=== PATIENT | female | born 1975 | race Caucasian/White ===

== ENCOUNTER 2017-09-30 00:27 | Emergency (ER) | payer BC, OTHER ==
[~2017-09-30] VITALS: Ht 162.6 cm; Wt 59.0 kg
--- OUTSIDE RECORDS SUMMARY | 2017-09-30 00:34 | XMS REPORT ---
Author Author CATHY DODD Organization [employer] Address Unknown Phone Unavailable Care Team Providers Care Clearance Center Manager Name Role Phone CATHY DODD CP Unavailable Allergies No Known Allergies Problems Problem Type Condition ICD-9 Code Onset Dates Condition Status Assessment Tuberculosis screening V74.1 Active Assessment Encounter for drug screening V72.85 Active Assessment Physical examination of employee V70.5 Active Medications No Known Medications Procedures Procedure Coding System Code Date TB INTRADERMAL TEST CPT-4 15370 Feb 27, 2015 Office Visit, New Pt., Level 2 CPT-4 86612 Feb 27, 2015 DRUG SCREEN NON TLC DEVICES CPT-4 02299 Feb 27, 2015 Vital Signs Date/Time: Feb 27, 2015 Blood Pressure Systolic 128 mmHg Cardiac Monitoring Heart Rate 84 bpm Temperature 97.8 F Blood Pressure Diastolic 72 mmHg Results No Known Results Summary Purpose [employer] Submission
[2017-09-30] MEDS ORDERED: NS IV 1000 ML 1,000 ML IV ONE (00:55)
--- NOTE | 2017-09-30 01:06 | ED GU-Female ---
General Chief Complaint: -Female Stated Complaint: HEAVY PERIOD Nursing Triage Note: pt presents to er with complaint of heavy period bleeding. states it started thursday and has progessively gotten worse. states shes been changing a pad every 30min-1hr Nursing Sepsis Screen: No Definite Risk Source: patient Exam Limitations: no limitations History of Present Illness Date Seen by Provider: Sep 30, 2017 Time Seen by Provider: 00:50 Initial Comments Here with report of any vaginal bleeding that has been going on for 2 days but much worse tonight. Reports that she is changing her pad every half hour. Denies any significant pain. She's never had bleeding like this before. She is not sexually active. Denies vaginal discharge or pain. Denies dysuria or diarrhea. Timing/Duration: getting worse Severity/Quality: moderate, other (bleeding) Location: vaginal Radiation: none Activities at Onset: none Sexual [place] History: not active Associated Symptoms: No abdominal pain, No dysuria, No fever/chills, No lower back pain, No nausea/vomiting, No urinary frequency Allergies and Home Medications Allergies Coded Allergies: No Known Drug Allergies (Unverified , 09/30/17) Home Medications No Active Prescriptions or Reported Meds Patient Home Medication List Home Medication List Reviewed: Yes Constitutional: see HPI, No chills, No fever EENTM: no symptoms reported Respiratory: no symptoms reported Cardiovascular: No chest pain, No palpitations, other (tachycardia) Gastrointestinal: No abdominal pain, No nausea, No vomiting Genitourinary: see HPI : No LMP: Sep 27, 2017 Musculoskeletal: no symptoms reported Skin: no symptoms reported Psychiatric/Neurological: No Symptoms Reported, Anxiety, Denies Headache All Other Systemes Reviewed Negative Unless Noted: Yes Past Sohdyms-Cgxvoo-Jzltyg Hx Patient Social History Alcohol Use: Denies Use Recreational Drug Use: No Smoking Status: Never a Smoker Recent Foreign Travel: No Contact w/Someone Who Travel: No Recent Infectious Disease Expo: No Recent Hopitalizations: No Seasonal Allergies Seasonal Allergies: Yes Surgeries History of Surgeries: No Respiratory History of Respiratory Disorde: No Cardiovascular History of Cardiac Disorders: No Neurological History of Neurological Disord: No Genitourinary History of Genitourinary Disor: No Gastrointestinal History of Gastrointestinal Di: No Musculoskeletal History of Musculoskeletal Dis: No Endocrine History of Endocrine Disorders: No HEENT History of HEENT Disorders: No Cancer History of Cancer: No Psychosocial History of Psychiatric Problem: No Integumentary History of Skin or Integumenta: No Blood Transfusions History of Blood Disorders: No Reviewed Nursing Assessment Reviewed/Agree w Nursing PMH: Yes Family Medical History Significant Family History: No Pertinent Family Hx Physical Exam Vital Signs Vital Signs - First Documented 09/30/17 00:36 Temp 98.0 Pulse 140 Resp 20 B/P (MAP) 130/107 (115) Pulse Ox 100 O2 Delivery Room Air Capillary Refill : Less Than 3 Seconds General Appearance: WD/WN, no apparent distress HEENT: PERRL/EOMI, pharynx normal Neck: full range of motion, supple Cardiovascular: no murmur, tachycardia Respiratory: lungs clear, normal breath sounds Gastrointestinal: non tender, soft Back: normal inspection, no CVA tenderness, no vertebral tenderness Extremities: non-tender, normal inspection Neurologic/Psychiatric: alert, oriented x 3 Skin: normal color, warm/dry Progress/Results/Core Measures Suspected Sepsis Recent Fever Within 48 Hours: No Infection Criteria Present: None New/Unexplained Altered Menta: No Sepsis Screen: No Definite Risk Sepsis Diagnosis: SIRS Temperature:98.0 Pulse: 140 Respiratory Rate: 20 Laboratory Tests 09/30/17 01:00: White Blood Count 9.4 Blood Pressure 130 /107 Mean: 115 Laboratory Tests 09/30/17 01:00: Creatinine 0.82, Platelet Count 353, Total Bilirubin 0.5 Results/Orders Lab Results Laboratory Tests Test 09/30/17 01:00 Range/Units White Blood Count 9.4 4.3-11.0 10^3/uL Red Blood Count 4.02 L 4.35-5.85 10^6/uL Hemoglobin 12.4 11.5-16.0 G/DL Hematocrit 35 35-52 % Mean Corpuscular Volume 88 80-99 FL Mean Corpuscular Hemoglobin 31 25-34 PG Mean Corpuscular Hemoglobin Concent 35 32-36 G/DL Red Cell Distribution Width 12.2 10.0-14.5 % Platelet Count 353 130-400 10^3/uL Mean Platelet Volume 10.0 7.4-10.4 FL Neutrophils (%) (Auto) 80 H 42-75 % Lymphocytes (%) (Auto) 16 12-44 % Monocytes (%) (Auto) 4 0-12 % Eosinophils (%) (Auto) 0 0-10 % Basophils (%) (Auto) 0 0-10 % Neutrophils # (Auto) 7.5 1.8-7.8 X 10^3 Lymphocytes # (Auto) 1.5 1.0-4.0 X 10^3 Monocytes # (Auto) 0.4 0.0-1.0 X 10^3 Eosinophils # (Auto) 0.0 0.0-0.3 10^3/uL Basophils # (Auto) 0.0 0.0-0.1 10^3/uL Sodium Level 136 135-145 MMOL/L Potassium Level 3.5 L 3.6-5.0 MMOL/L Chloride Level 103 98-107 MMOL/L Carbon Dioxide Level 22 21-32 MMOL/L Anion Gap 11 5-14 MMOL/L Blood Urea Nitrogen 9 7-18 MG/DL Creatinine 0.82 0.60-1.30 MG/DL Estimat Glomerular Filtration Rate > 60 BUN/Creatinine Ratio 11 Glucose Level 160 H 70-105 MG/DL Calcium Level 9.2 8.5-10.1 MG/DL Total Bilirubin 0.5 0.1-1.0 MG/DL Aspartate Amino Transf (AST/SGOT) 22 5-34 U/L Alanine Aminotransferase (ALT/SGPT) 19 0-55 U/L Alkaline Phosphatase 63 40-136 U/L Total Protein 7.2 6.4-8.2 GM/DL Albumin 4.5 3.2-4.5 GM/DL My Orders Orders - MAGEN LOWE MD Cbc With Automated Diff (09/30/17 00:55) Comprehensive Metabolic Panel (09/30/17 00:55) Hcg,Qualitative Serum (09/30/17 00:55) Saline Lock/Iv-Start (09/30/17 00:55) Ns Iv 1000 Ml (Sodium Chloride 0.9%) (09/30/17 00:55) Type And Screen (09/30/17 00:55) Medications Given in ED Current Medications Medications Dose Ordered Sig/Viola Route Start Time Stop Time Status Last Admin Dose Admin Sodium Chloride 1,000 ml @ 0 mls/hr Q0M ONCE IV 09/30/17 00:55 09/30/17 00:57 DC 09/30/17 01:10 1,000 MLS/HR Vital Signs/I&O Vital Sign - Last 12Hours 09/30/17 00:36 Temp 98.0 Pulse 140 Resp 20 B/P (MAP) 130/107 (115) Pulse Ox 100 O2 Delivery Room Air Capillary Refill : Less Than 3 Seconds Blood Pressure Mean: 115 Progress Note : Progress Note Seen and evaluated. Patient is tachycardic but states that she always gets that way when she comes to the doctor's. Denies pain. We will check labs and give IV 1 L bolus. Monitor patient. 0146: Hemoglobin is in the normal range and there is no other significant findings. Heart rate is improved after fluids. We did talk about further evaluation. She will follow-up with her media services coordinator for her doctor this week for recheck and further evaluation. We did discuss the fact that she has not had a gynecological exam really ever and she really needs to get this done for her safety and health. She verbalizes understanding. Discharged home with return precautions. Patient verbalize understanding of instructions and agreement with plan. Departure Impression Impression: Primary Impression: Heavy menstrual bleeding Qualified Codes: N92.0 - Excessive and frequent menstruation with regular cycle Disposition: 01 HOME, SELF-CARE Condition: Stable Departure-Patient Inst. Decision time for Depature: 01:47 Referrals: JANUARY ASTUDILLO MD (PCP/Family) Primary Care Physician Patient Instructions: IRREGULAR VAGINAL BLEEDING Add. Discharge Instructions: All discharge instructions reviewed with patient and/or family. Voiced understanding. It is very important that you follow up with your doctor this week for further evaluation including pelvic exam. Return for worse pain, fever, vomiting, weakness, dizziness, feeling like to go to pass out, persistent or heavier bleeding or other concerns as needed. Drink plenty of fluids and eat a normal diet. Scripts No Active Prescriptions or Reported Meds Copy Copies To 1: JANUARY ASTUDILLO MD, TIMOTHY D MD Sep 30, 2017 01:06
[2017-09-30 01:09] LABS: BASOPHILS % (AUTO) 0 % (0-10); EOSINOPHILS % (AUTO) 0 % (0-10); HEMATOCRIT 35 % (35-52); HEMOGLOBIN 12.4 G/DL (11.5-16.0); LYMPHOCYTES # (AUTO) 1.5 X 10^3 (1.0-4.0); LYMPHOCYTES % (AUTO) 16 % (12-44); MEAN CORPUSCULAR HEMOGLOBIN 31 PG (25-34); MEAN CORPUSCULAR HGB CONC 35 G/DL (32-36); MEAN CORPUSCULAR VOLUME 88 FL (80-99); MONOCYTES # (AUTO) 0.4 X 10^3 (0.0-1.0); MONOCYTES % (AUTO) 4 % (0-12); NEUTROPHILS # (AUTO) 7.5 X 10^3 (1.8-7.8); NEUTROPHILS % (AUTO) 80 % (42-75); PLATELET COUNT 353 10^3/uL (130-400); RED BLOOD COUNT 4.02 10^6/uL (4.35-5.85); RED CELL DISTRIBUTION WIDTH 12.2 % (10.0-14.5); WHITE BLOOD COUNT 9.4 10^3/uL (4.3-11.0)
[2017-09-30 01:29] LABS: ALANINE AMINOTRANSFERASE 19 U/L (0-55); ALBUMIN 4.5 GM/DL (3.2-4.5); ALKALINE PHOSPHATASE 63 U/L (40-136); BILIRUBIN,TOTAL 0.5 MG/DL (0.1-1.0); BUN/CREATININE RATIO 11; CALCIUM 9.2 MG/DL (8.5-10.1); CARBON DIOXIDE 22 MMOL/L (21-32); CHLORIDE 103 MMOL/L (98-107); CREATININE SERUM 0.82 MG/DL (0.60-1.30); GFR ESTIMATED > 60; GLUCOSE 160 MG/DL (70-105); POTASSIUM 3.5 MMOL/L (3.6-5.0); SODIUM 136 MMOL/L (135-145); TOTAL PROTEIN 7.2 GM/DL (6.4-8.2)
[2017-09-30 02:08] VITALS: BP 137/100
== END 2017-09-30 02:09 | disposition home or self-care (01) ==
LOC: ER 00:31
DX: N92.0 Excessive and frequent menstruation with regular cycle (principal)
CPT/HCPCS: 36415; 80053; 84703; 85025; 86850; 86900; 86901

== ENCOUNTER 2017-09-30 22:47 | Emergency (ER) | payer BC ==
[~2017-09-30] VITALS: Ht 162.6 cm; Wt 59.0 kg
[2017-09-30 23:44] LABS: WHITE BLOOD COUNT 7.8 10^3/uL (4.3-11.0)
[2017-09-30 23:45] LABS: HEMATOCRIT 22 % (35-52); HEMOGLOBIN 7.4 G/DL (11.5-16.0); MEAN CORPUSCULAR HEMOGLOBIN 30 PG (25-34); MEAN CORPUSCULAR HGB CONC 34 G/DL (32-36); MEAN CORPUSCULAR VOLUME 89 FL (80-99); MEAN PLATELET VOLUME 10.3 FL (7.4-10.4); PLATELET COUNT 284 10^3/uL (130-400); RED BLOOD COUNT 2.43 10^6/uL (4.35-5.85); RED CELL DISTRIBUTION WIDTH 11.9 % (10.0-14.5)
[2017-09-30 23:46] LABS: BASOPHILS % (AUTO) 0 % (0-10); EOSINOPHILS % (AUTO) 0 % (0-10); LYMPHOCYTES % (AUTO) 14 % (12-44); MONOCYTES # (AUTO) 0.5 X 10^3 (0.0-1.0); MONOCYTES % (AUTO) 7 % (0-12); NEUTROPHILS # (AUTO) 5.5 X 10^3 (1.8-7.8); NEUTROPHILS % (AUTO) 78 % (42-75)
[2017-09-30 23:58] LABS: ALANINE AMINOTRANSFERASE 11 U/L (0-55); ALBUMIN 3.1 GM/DL (3.2-4.5); ALKALINE PHOSPHATASE 36 U/L (40-136); BILIRUBIN,TOTAL 0.3 MG/DL (0.1-1.0); BUN/CREATININE RATIO 14; CALCIUM 7.4 MG/DL (8.5-10.1); CARBON DIOXIDE 22 MMOL/L (21-32); CHLORIDE 104 MMOL/L (98-107); CREATININE SERUM 0.64 MG/DL (0.60-1.30); GFR ESTIMATED > 60; GLUCOSE 157 MG/DL (70-105); POTASSIUM 3.7 MMOL/L (3.6-5.0); SODIUM 131 MMOL/L (135-145); TOTAL PROTEIN 4.6 GM/DL (6.4-8.2)
[2017-10-01] VITALS (7 sets, daily range): BP systolic 109–137; BP diastolic 74–90
[2017-10-01 00:11] LABS: INR 1.2 (0.8-1.4); PROTHROMBIN TIME PATIENT 14.9 SEC (12.2-14.7)
[2017-10-01] MEDS ORDERED: NS IV 500 ML 500 ML ONE (01:03)
--- NOTE | 2017-10-01 04:00 | ED General ---
General Chief Complaint: Dizziness/Syncope Stated Complaint: GROIN PAIN Nursing Triage Note: PT PRESENTS TO ER BY EMS WITH COMPLAINT OF PASSING OUT. PT WAS SEEN LAST NIGHT IN THE ER FOR HEAVY MENSTRUAL BLEEDING. Nursing Sepsis Screen: No Definite Risk Source of Information: Patient, Old Records Exam Limitations: No Limitations History of Present Illness Date Seen by Provider: Sep 30, 2017 Time Seen by Provider: 22:48 Initial Comments This 42-year-old woman presents to the emergency room via EMS after having a syncopal episode at home. She has been experiencing heavy vaginal bleeding for 5 days. She was seen for the same complaint yesterday. She was hydrated and return home with instructions for close follow-up with a gynecologic provider. Symptoms continued to worsen after her ER visit. On arrival she appears pale and is tachycardic. She reports still having some mild bleeding. She has some associated nausea and vomiting. Patient has never had any problems with her menstrual cycles. She has no gynecologic history. She has never been sexually active. She has never had a pelvic exam. Allergies and Home Medications Allergies Coded Allergies: No Known Drug Allergies (Unverified , 09/30/17) Home Medications No Active Prescriptions or Reported Meds Patient Home Medication List Home Medication List Reviewed: Yes Constitutional: no symptoms reported EENTM: no symptoms reported Respiratory: no symptoms reported Cardiovascular: see HPI Gastrointestinal: no symptoms reported Genitourinary: see HPI : No LMP: Sep 25, 2017 Musculoskeletal: no symptoms reported Skin: no symptoms reported Psychiatric/Neurological: No Symptoms Reported Hematologic/Lymphatic: No Symptoms Reported Past Qziqixt-Zeoase-Fvogmq Hx Patient Social History Alcohol Use: Denies Use Recreational Drug Use: No Smoking Status: Never a Smoker Recent Foreign Travel: No Contact w/Someone Who Travel: No Recent Infectious Disease Expo: No Recent Hopitalizations: No Seasonal Allergies Seasonal Allergies: Yes Surgeries History of Surgeries: No Respiratory History of Respiratory Disorde: No Cardiovascular History of Cardiac Disorders: No Neurological History of Neurological Disord: No Reproductive System : No Genitourinary History of Genitourinary Disor: No Gastrointestinal History of Gastrointestinal Di: No Musculoskeletal History of Musculoskeletal Dis: No Endocrine History of Endocrine Disorders: No HEENT History of HEENT Disorders: No Cancer History of Cancer: No Psychosocial History of Psychiatric Problem: No Integumentary History of Skin or Integumenta: No Blood Transfusions History of Blood Disorders: No Family Medical History Significant Family History: No Pertinent Family Hx Physical Exam Vital Signs Vital Signs - First Documented 09/30/17 22:50 Temp 98.3 Pulse 109 Resp 16 B/P (MAP) 140/83 (102) Pulse Ox 100 O2 Delivery Room Air Capillary Refill : Less Than 3 Seconds General Appearance: No Apparent Distress, WD/WN HEENT: PERRL/EOMI, Normal ENT Inspection, Pharynx Normal Neck: Normal Inspection Respiratory: Lungs Clear, Normal Breath Sounds, No Accessory Muscle Use, No Respiratory Distress Cardiovascular: No Edema, No Murmur, Tachycardia Gastrointestinal: Normal Bowel Sounds, No Organomegaly, Soft, Tenderness ( Suprapubic) Extremity: Normal Inspection, No Pedal Edema Neurologic/Psychiatric: Alert, Oriented x3, No Motor/Sensory Deficits, Normal Mood/Affect, 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 Skin: Warm/Dry, Pallor Progress/Results/Core Measures Suspected Sepsis Recent Fever Within 48 Hours: No Infection Criteria Present: None New/Unexplained Altered Menta: No Sepsis Screen: No Definite Risk Sepsis Diagnosis: SIRS Temperature:99.5 Pulse: 86 Respiratory Rate: 13 Laboratory Tests 09/30/17 23:20: White Blood Count 7.8 Blood Pressure 109 /80 Mean: 90 Laboratory Tests 09/30/17 23:20: Creatinine 0.64, INR Comment 1.2, Platelet Count 284, Total Bilirubin 0.3 Results/Orders Lab Results Laboratory Tests Test 09/30/17 23:20 Range/Units White Blood Count 7.8 4.3-11.0 10^3/uL Red Blood Count 2.43 L 4.35-5.85 10^6/uL Hemoglobin 7.4 #L 11.5-16.0 G/DL Hematocrit 22 L 35-52 % Mean Corpuscular Volume 89 80-99 FL Mean Corpuscular Hemoglobin 30 25-34 PG Mean Corpuscular Hemoglobin Concent 34 32-36 G/DL Red Cell Distribution Width 11.9 10.0-14.5 % Platelet Count 284 130-400 10^3/uL Mean Platelet Volume 10.3 7.4-10.4 FL Neutrophils (%) (Auto) 78 H 42-75 % Lymphocytes (%) (Auto) 14 12-44 % Monocytes (%) (Auto) 7 0-12 % Eosinophils (%) (Auto) 0 0-10 % Basophils (%) (Auto) 0 0-10 % Neutrophils # (Auto) 5.5 1.8-7.8 X 10^3 Lymphocytes # (Auto) 1.0 1.0-4.0 X 10^3 Monocytes # (Auto) 0.5 0.0-1.0 X 10^3 Eosinophils # (Auto) 0.0 0.0-0.3 10^3/uL Basophils # (Auto) 0.0 0.0-0.1 10^3/uL Prothrombin Time 14.9 H 12.2-14.7 SEC INR Comment 1.2 0.8-1.4 Activated Partial Thromboplast Time 25 24-35 SEC Sodium Level 131 L 135-145 MMOL/L Potassium Level 3.7 3.6-5.0 MMOL/L Chloride Level 104 98-107 MMOL/L Carbon Dioxide Level 22 21-32 MMOL/L Anion Gap 5 5-14 MMOL/L Blood Urea Nitrogen 9 7-18 MG/DL Creatinine 0.64 0.60-1.30 MG/DL Estimat Glomerular Filtration Rate > 60 BUN/Creatinine Ratio 14 Glucose Level 157 H 70-105 MG/DL Calcium Level 7.4 L 8.5-10.1 MG/DL Total Bilirubin 0.3 0.1-1.0 MG/DL Aspartate Amino Transf (AST/SGOT) 15 5-34 U/L Alanine Aminotransferase (ALT/SGPT) 11 0-55 U/L Alkaline Phosphatase 36 L 40-136 U/L Total Protein 4.6 L 6.4-8.2 GM/DL Albumin 3.1 L 3.2-4.5 GM/DL My Orders Orders - MANJEET ESPINOZA MD Cbc With Automated Diff (09/30/17 22:53) Comprehensive Metabolic Panel (09/30/17 22:53) Saline Lock/Iv-Start (09/30/17 22:53) Monitor-Rhythm Ecg Trace Only (09/30/17 22:53) Red Cells Leukocytes Reduced (09/30/17 23:50) Protime With Inr (09/30/17 23:51) Partial Thromboplastin Time (09/30/17 23:51) Us Pelvic (Non Ob)33660 (09/30/17 23:51) Type And Screen (09/30/17 23:50) Ns Iv 500 Ml (Sodium Chloride 0.9%) (3/15/18 01:03) Medications Given in ED Current Medications Medications Dose Ordered Sig/Viola Route Start Time Stop Time Status Last Admin Dose Admin Sodium Chloride 500 ml @ ud STK-MED ONCE .ROUTE 10/01/17 01:03 10/01/17 01:07 DC 10/01/17 01:15 0 MLS/HR Vital Signs/I&O Vital Sign - Last 12Hours 09/30/17 10/01/17 10/01/17 10/01/17 22:50 01:15 01:30 02:15 Temp 98.3 99.9 98.9 99.2 Pulse 109 99 99 98 Resp 16 18 15 B/P (MAP) 140/83 (102) 136/84 128/74 137/90 Pulse Ox 100 100 100 O2 Delivery Room Air Room Air Room Air 10/01/17 10/01/17 10/01/17 10/01/17 02:43 02:58 03:43 04:12 Temp 99.5 99.2 99.8 99.8 Pulse 86 91 95 95 Resp 13 20 20 20 B/P (MAP) 109/80 124/76 133/81 133/81 (98) Pulse Ox 100 100 100 100 O2 Delivery Room Air Intake and Output 10/01/17 00:00 Intake Total 1000 ml Balance 1000 ml Capillary Refill : Less Than 3 Seconds Blood Pressure Mean: 90 Progress Note : Progress Note Patient was found to have a significant drop in hemoglobin over the past 24 hours. She received a liter of IV fluids were started by EMS. Case was discussed with Dr. Martinez. Since her bleeding seems to be tapering down, he advised follow-up in the clinic after transfusion. She received 2 units of packed red blood cells and appeared stable. Departure Impression Impression: Primary Impression: Menorrhagia Qualified Codes: N92.0 - Excessive and frequent menstruation with regular cycle Additional Impressions: Severe anemia Syncope Qualified Codes: R55 - Syncope and collapse Disposition: 01 HOME, SELF-CARE Condition: Improved Departure-Patient Inst. Decision time for Depature: 03:58 Referrals: BRADY MARTINEZ MD, FLOYD R MD (PCP/Family) Primary Care Physician Patient Instructions: IRREGULAR VAGINAL BLEEDING Add. Discharge Instructions: Return to care if symptoms worsen again. Contact Dr. Michelle Cho the data management consultant of your choice later today. Stay well-hydrated and get plenty of rest. All discharge instructions reviewed with patient and/or family. Voiced understanding. Scripts No Active Prescriptions or Reported Meds Work/School Note: Work Release Form Date Seen in the Emergency Department: Oct 01, 2017 Return to Work: Oct 05, 2017 Restrictions: No Restrictions MANJEET ESPINOZA MD Oct 01, 2017 04:00
--- NOTE | 2017-10-01 06:49 | Diagnostic Imaging Report ---
INDICATION: Vaginal bleeding, passed out at home. Decreased hemoglobin. TECHNIQUE: Multiple real time saleem scale sonographic images were obtained of the pelvis transabdominally. CORRELATION STUDY: None FINDINGS: UTERUS/ENDOMETRIUM: Uterus measures 5.9 x 4.6 x 3.8 cm. Endometrial thickness is 4 mm. Trace fluid in endometrial canal. No definitive myometrial mass. RIGHT OVARY: 2.7 x 1.9 x 2.1 cm. LEFT OVARY: Not visualized.. Right ovary appearing unremarkable. Color vascular flow demonstrated to the right ovary. No significant free pelvic fluid. IMPRESSION: 1. Limited examination. Trace amount of fluid in endometrial canal. 2. Right ovary appearing grossly unremarkable with nonvisualization left ovary. A preliminary report was provided by [employer]. Dictated by: Dictated on workstation # [id number]
== END 2017-10-01 04:12 | disposition home or self-care (01) ==
LOC: EDUNIT# 22:47 → ER 22:48
DX: N92.0 Excessive and frequent menstruation with regular cycle (principal); D64.9 Anemia, unspecified; R55 Syncope and collapse
CPT/HCPCS: 36415; 76856; 80053; 85025; 85610; 85730; 86850; 86900; 86901; 86920; 93041

== ENCOUNTER 2017-10-13 05:45 | Outpatient (CLI) | payer BC ==
[~2017-10-13] VITALS: Ht 162.6 cm; Wt 59.0 kg
[2017-10-15] MEDS ORDERED: IBUP-1773 PO (10:31)
== END 2017-10-13 12:49 ==
LOC: PREOP 05:45
PROVIDERS: ATTEND Obstetrics & Gynecology
DX: Z01.818 Encounter for other preprocedural examination (principal); N93.9 Abnormal uterine and vaginal bleeding, unspecified